=== PATIENT | male | born 2000 | race Two or more races ===

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

== ENCOUNTER 2022-07-11 11:47 | Emergency (ER) | payer MEDICAID ==
[~2022-07-11] VITALS: Ht 175.3 cm; Wt 72.7 kg
[2022-07-11] MEDS ORDERED: ONDANSETRON HCL 4 MG/2 ML VIAL IV ONE (12:15)
[2022-07-11] MEDS ORDERED: SODIUM CHLORIDE 0.9% 1,000 ML IV ONE ×3 (12:15→16:00)
[2022-07-11 12:46] LABS: Hemoglobin 18.1 g/dL (13.5-17.5)
[2022-07-11 12:51] LABS: Hematocrit 53.6 % (41.0-53.0); Mean Corpuscular Hgb Conc. 33.7 g/dL (32.0-36.0); Mean Corpuscular Volume 91.9 fL (80.0-100.0); Red Blood Cells 5.83 10^6/uL (4.5-5.90); Red Cell Distribution Width 12.7 % (11.8-14.3)
[2022-07-11 12:55] LABS: Band Neutrophils % (manual) 0; Basophils % (manual) 0 (0.0-2.0); Blast Cells 0; Eosinophils % (manual) 0 (0-7); Metamyelocytes % 0; Myelocytes % 0; Promyelocytes % 0; Reactive Lymphocytes 0
[2022-07-11 12:59] LABS: Albumin 4.9 g/dL (3.4-5.0); Potassium 3.1 mmol/L (3.5-5.1)
[2022-07-11 13:03] LABS: BUN/Creatinine Ratio 12.6; Bilirubin, Total 1.9 mg/dL (0.2-1.0); Total Protein 8.8 g/dL (6.4-8.2)
[2022-07-11 13:26] LABS: Lymphocytes % (manual) 25 (10.0-50.0); Monocytes % (manual) 4 (0-12)
[2022-07-11] MEDS ORDERED: POTASSIUM EFFERVESENT TAB 25 MEQ PO ONE (13:30)
[2022-07-11] MEDS ORDERED: ONDA-144 PO (16:44)
[2022-07-11 22:40] VITALS: BP 120/82
== END 2022-07-11 22:51 | disposition home or self-care (01) ==
LOC: ER 11:47
DX: K52.9 Noninfective gastroenteritis and colitis, unspecified (principal); E87.6 Hypokalemia
CPT/HCPCS: 36415; 74176; 80053; 85007; 85027; 96361; 96374; 99284; J2405; J7030

== ENCOUNTER 2023-07-02 18:32 | Emergency (ER) | payer MEDICAID ==
[~2023-07-02] VITALS: Ht 177.8 cm; Wt 77.9 kg
[~2023-07-02 18:32] MED LIST: ONDA-144 PO
[2023-07-02 19:01] VITALS: PULSE 105; RESP 20; O2SAT 97
[2023-07-02 19:48] LABS: Basophils # (auto) 0 10 ^3/uL (0-0.2); Basophils % (auto) 0.1 % (0.0-2.0); Eosinophils # (auto) 0 10 ^3/uL (0-0.8); Hemoglobin 17.6 g/dL (13.5-17.5); Lymphocytes # (auto) 0.5 10 ^3/uL (0.4-5.4); Lymphocytes % (auto) 5.2 % (10.0-50.0); Mean Corpuscular Hemoglobin 31.7 pg (28.0-32.0); Mean Corpuscular Hgb Conc. 34.6 g/dL (32.0-36.0); Mean Corpuscular Volume 91.8 fL (80.0-100.0); Monocytes # (auto) 0.3 10 ^3/uL (0-1.3); Monocytes % (auto) 3.1 % (0.0-12.0); Neutrophils # (auto) 9.3 10 ^3/uL (1.6-8.6); Neutrophils % (auto) 91.6 % (37.0-80.0); Red Blood Cells 5.56 10^6/uL (4.5-5.90); Red Cell Distribution Width 12.7 % (11.8-14.3); White Blood Cell 10.1 10^3/uL (4.4-10.8)
[2023-07-02 20:08] LABS: Albumin 4.7 g/dL (3.4-5.0); Calcium 9.3 mg/dL (8.5-10.1); Potassium 3.3 mmol/L (3.5-5.1)
[2023-07-02 20:11] LABS: BUN/Creatinine Ratio 8.2 (10.0-20.0); Bilirubin, Total 1.8 mg/dL (0.2-1.0)
[2023-07-02] MEDS ORDERED: LORazepam 0.5 MG TAB PO ONE (20:30)
[2023-07-02] MEDS ORDERED: ONDANSETRON HCL 4 MG/2 ML VIAL IM ONE (20:30)
[2023-07-02] MEDS ORDERED: PROMETHAZINE HCL 25 MG/ML 1ML IM ONE (21:15)
[2023-07-02] MEDS ORDERED: KETOROLAC TROMETH 60MG/2ML VIAL IM ONE (22:15)
[2023-07-02 23:34] VITALS: BP 112/79; PULSE 88; RESP 19; TEMP 98.7
[2023-07-02 23:39] LABS: Alcohol, Urine < 3.0 mg/dL (0-10); Amphetamine Screen, Urine NEGATIVE (NEGATIVE); Barbiturate Scree,Urine NEGATIVE (NEGATIVE); Benzodiazephine Screen, Urine NEGATIVE (NEGATIVE); Cannabinoid Screen, Urine POSITIVE (NEGATIVE); Cocaine Screen, Urine NEGATIVE (NEGATIVE); Opiate Scree,Urine NEGATIVE (NEGATIVE); Phencyclidine Screen, Urine NEGATIVE (NEGATIVE)
[2023-07-03 00:45] VITALS: O2SAT 98
== END 2023-07-03 00:45 | disposition home or self-care (01) ==
LOC: ER 18:32
DX: R20.0 Anesthesia of skin (principal); R11.10 Vomiting, unspecified; Z79.899 Other long term (current) drug therapy
CPT/HCPCS: 36415; 70450; 80053; 80307; 85025; 96372; 99285; J1885; J2405; J2550